=== PATIENT | female | born 1970 | race Caucasian/White ===

== ENCOUNTER → 2016-11-14 | Outpatient (CLI) | payer OTHER ==
[~2016-11-14] MED LIST: MTH2; NAPROXEN; PRENTAB26
--- NOTE | 2016-11-14 13:58 | MAMMOGRAPHY REPORT ---
BILATERAL DIGITAL SCREENING MAMMOGRAM TOMOSYNTHESIS WITH CAD: 11/14/2016 CLINICAL HISTORY: Routine screening. Patient has no complaints. TECHNIQUE: Breast tomosynthesis in addition to standard 2D mammography was performed. Current study was also evaluated with a Computer Aided Detection (CAD) system. COMPARISON: Comparison is made to exams dated: 08/30/2015 mammogram, 08/09/2014 mammogram, 07/24/2013 mammogram, 04/09/2012 ultrasound, and 04/09/2012 mammogram - [facility]. BREAST COMPOSITION: There are scattered areas of fibroglandular density in both breasts. FINDINGS: No suspicious mass, architectural distortion or cluster of microcalcifications is seen. IMPRESSION: ACR BI-RADS CATEGORY 1: NEGATIVE There is no mammographic evidence of malignancy. A 1 year screening mammogram is recommended. The p atient will receive written notification of the results. Approximately 10% of breast cancers are not detected with mammography. A negative mammographic repor t should not delay biopsy if a clinically suggestive mass is present. Anne marcos/rodrigo:11/14/2016 12:59:08 A Operator: Inocencia Ariza, [facility] letter sent: Normal 1/2 BI-RADS Code: ACR BI-RADS Category 1: Negative
== END | disposition home or self-care (01) ==
LOC: C.MAMM 11:21
PROVIDERS: ATTEND Obstetrics & Gynecology
DX: Z12.31 Encounter for screening mammogram for malignant neoplasm of breast (principal)

== ENCOUNTER → 2017-07-17 | Outpatient (CLI) | payer OTHER | END | disposition home or self-care (01) | LOC: C.LABSPEC 17:38 | PROVIDERS: ATTEND Physician Assistant | DX: N89.8 Other specified noninflammatory disorders of vagina (principal) ==

== ENCOUNTER → 2017-12-10 | Outpatient (CLI) | payer OTHER ==
--- NOTE | 2017-12-10 13:28 | MAMMOGRAPHY REPORT ---
BILATERAL DIGITAL SCREENING MAMMOGRAM TOMOSYNTHESIS WITH CAD: 12/10/2017 CLINICAL HISTORY: Routine screening. Patient has no complaints. TECHNIQUE: Breast tomosynthesis in addition to standard 2D mammography was performed. Current study was also evaluated with a Computer Aided Detection (CAD) system. COMPARISON: Comparison is made to exams dated: 08/30/2015 mammogram, 11/14/2016 mammogram, 07/24/2013 mammogram, 08/09/2014 mammogram, 04/09/2012 ultrasound, and 04/09/2012 mammogram - [facility]. BREAST COMPOSITION: There are scattered areas of fibroglandular density in both breasts. FINDINGS: There is a possible small grouping of microcalcifications in the 1:00 to 2:00 far posterio r left breast, for which spot magnification views, including spot magnification exaggerated lateral C C view is recommended. No other suspicious masses, calcifications, areas of architectural distortion or asymmetries are iden tified bilaterally. IMPRESSION: ACR BI-RADS CATEGORY 0: INCOMPLETE EVALUATION: NEED ADDITIONAL IMAGING EVALUATION The possible small grouping of microcalcifications in the 1:00 to 2:00 far posterior left breast need s additional evaluation. The patient will be called to schedule an appointment. Approximately 10% of breast cancers are not detected with mammography. A negative mammographic report should not delay biopsy if a clinically suggestive mass is present. Anne Iverson M.D. ay/:12/10/2017 08:26:44 Senior Account Director: Anette RIVAS,R, M, [facility] letter sent: Addl Imaging 0 BI-RADS Code: ACR BI-RADS Category 0: Incomplete Evaluation: Need Additional Imaging Evaluation
== END | disposition home or self-care (01) ==
LOC: C.MAMM 07:42
PROVIDERS: ATTEND Nurse Practitioner Family
DX: Z12.31 Encounter for screening mammogram for malignant neoplasm of breast (principal); R92.8 Other abnormal and inconclusive findings on diagnostic imaging of breast

== ENCOUNTER → 2017-12-24 | Outpatient (CLI) | payer OTHER ==
--- NOTE | 2017-12-24 15:24 | MAMMOGRAPHY REPORT ---
UNILATERAL LEFT DIGITAL DIAGNOSTIC MAMMOGRAM: 12/24/2017 CLINICAL HISTORY: 47-year-old woman called back from screening mammography for left breast microcalci fications. Family history of breast cancer = paternal grandmother and paternal great-grandmother. TECHNIQUE: Spot magnification left CC, exaggerated lateral CC and ML views were obtained. COMPARISON: Comparison is made to exams dated: 12/10/2017 mammogram, 11/14/2016 mammogram, 08/30/2015 m ammogram, 08/09/2014 mammogram, 07/24/2013 mammogram, and 04/09/2012 ultrasound - [facility] enter. BREAST COMPOSITION: There are scattered areas of fibroglandular density in the left breast. FINDINGS: There is a small, 2 mm grouping of approximately 4 punctate microcalcifications in the upp er outer far posterior left breast. No associated architectural distortion, nodularity or mass appre ciated. When comparing back to prior available mammograms, these were likely present on the 11/14/19 17 MLO view, but not definitely seen on mammograms prior to 2017 and are therefore indeterminate. Gi umang the punctate morphology and small grouping they are probably benign, however, a short interval fo llow-up left diagnostic tomosynthesis mammogram including spot magnification views is recommended to ensure stability in 6 months. IMPRESSION: ACR-BI-RADS CATEGORY 3: PROBABLY BENIGN The small, 2 mm grouping of punctate microcalcifications in the upper outer posterior left breast cou ld represent benign fibrocystic change. However, given that they were not clearly seen prior to the 2017 mammograms to ensure long-term stability, a short interval follow-up left diagnostic mammogram i ncluding spot magnification views is recommended in 6 months. These results and recommendations were discussed with the patient at the time of the exam. She tenta tively scheduled a follow-up appointment prior to leaving our department. Approximately 10% of breast cancers are not detected with mammography. A negative mammographic report should not delay biopsy if a clinically suggestive mass is present. Anne Iverson M.D. ay/:12/24/2017 09:47:51 Roaster Supervisor: Sirisha RIVAS(R)(Pratik), [facility] letter sent: Follow Up Recommended 3 BI-RADS Code: ACR-BI-RADS Category 3: Probably Benign
== END | disposition home or self-care (01) ==
LOC: C.MAMM 09:08
PROVIDERS: ATTEND Neuromusculoskeletal Medicine & OMM
DX: R92.0 Mammographic microcalcification found on diagnostic imaging of breast (principal)

== ENCOUNTER → 2018-02-25 | Outpatient (CLI) | payer OTHER ==
--- NOTE | 2018-02-25 09:46 | DIAGNOSTIC IMAGING REPORT ---
R FOOT MIN 3 VIEWS CLINICAL HISTORY: Lateral right foot pain. No recent trauma. COMPARISON: None FINDINGS: Tarsometatarsal joints are intact. There is no fracture or suspicious lesion. There is moderate joint space narrowing with osteophytosis of the right first metatarsophalangeal joint. There is no evidence for stress fracture. No erosions are identified. IMPRESSION: 1. No acute fracture or dislocation within the right foot. 2. 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 Electronically signed by: Garo Ellsworth M.D. 02/25/2018 9:45 AM Dictated Date/Time: 02/25/2018 9:44 AM
== END | disposition home or self-care (01) ==
LOC: C.RDSM 08:41
PROVIDERS: ATTEND Family Medicine
DX: M79.671 Pain in right foot (principal); M19.071 Primary osteoarthritis, right ankle and foot

== ENCOUNTER → 2018-06-24 | Outpatient (CLI) | payer OTHER ==
--- NOTE | 2018-06-24 15:13 | MAMMOGRAPHY REPORT ---
UNILATERAL LEFT DIGITAL DIAGNOSTIC MAMMOGRAM TOMOSYNTHESIS WITH CAD: 06/24/2018 CLINICAL HISTORY: 48-year-old woman presents for follow-up in the left breast for a tiny grouping of punctate microcalcifications in the lateral, posterior breast. Family history of breast cancer = gran dmother and great-grandmother. TECHNIQUE: Left breast CC and MLO 2D and tomosynthesis images, spot magnification XCCL and ML views w ere also obtained. Current study was also evaluated with a Computer Aided Detection (CAD) system. COMPARISON: Comparison is made to exams dated: 12/24/2017 mammogram, 12/10/2017 mammogram, 11/14/2016 ma mmogram, 08/30/2015 mammogram, 08/09/2014 mammogram, and 07/24/2013 mammogram - [facility] enter. BREAST COMPOSITION: There are scattered areas of fibroglandular density in left breast. FINDINGS: The glandular pattern of the left breast is similar to prior mammograms. No new suspicious masses, asymmetries, areas of architectural distortion or new clusters of calcifications are identif ied. A small grouping of punctate calcifications in the 3:00 posterior left breast is again identified on the spot magnification views, measuring 1.5 mm. Although the calcifications appear slightly better v isualized on the current spot magnification views, the measurements are the same and differences are likely due to slight patient motion on the prior exam and/or technique. Overall, the cluster of calc ifications does not appear significantly increased. Again we discussed options of tissue sampling vi a stereotactic biopsy versus continued close follow-up imaging. We will opt to continue following th e calcifications at this time. IMPRESSION: ACR-BI-RADS CATEGORY 3: PROBABLY BENIGN Stable mammographic appearance of the left breast including a small 1.5 mm cluster of punctate microc alcifications in the 3:00 posterior breast. Another short interval follow-up left diagnostic mammogr am including spot magnification views is recommended to ensure longer stability. Annual right mammog lindsey will also be due at that time. These results and recommendation were discussed with the patient at the time of the exam. Some breast cancers are not detected with mammography. A negative mammographic report should not baljinder y biopsy if a clinically suggestive mass is present. Anne Iverson M.D. ay/:06/24/2018 09:10:17 Track Equipment Operator: Tia Knee, RT(R)(M), [facility] letter sent: Follow Up Recommended 3 BI-RADS Code: ACR-BI-RADS Category 3: Probably Benign
== END | disposition home or self-care (01) ==
LOC: C.MAMM 08:03
PROVIDERS: ATTEND Neuromusculoskeletal Medicine & OMM
DX: R92.0 Mammographic microcalcification found on diagnostic imaging of breast (principal)